=== PATIENT | female | born 1995 | race Caucasian/White ===

== ENCOUNTER 2017-12-16 15:38 | Emergency (ER) | payer OTHER ==
[2017-12-16 16:11] VITALS: BP 123/89
[2017-12-16] MEDS ORDERED: Lidocaine 1% MPF* 2 ML VIAL INJ ONE (16:47)
--- NOTE | 2017-12-16 16:55 | UC ---
Laceration HPI <Charli Pires - Last Filed: 12/16/17 17:03> - HPI Summary HPI Summary: 22 y/o female presents to the urgent care c/o cutting her second Rt finger while washing the dishes about 1 hrs ago, bleeding is constant every time she moves her finger. Pain is 5/10 w/ touch, she can move her finger w/o any difficulty. Pt is UTD w/ tetanus shot. Pt denies fever, numbness and tingling sensation over the finger or hand, SOB, chest pain, abdominal pain, N/V/D - History Of Current Complaint Hx Obtained From: Patient Laceration Location: Finger - Base of RT second finger laceration Mechanism Of Injury: Sharp Trauma Onset/Duration: Lasting Hours - 1, Still Present Severity: Mild Pain Intensity: 4 Pain Scale Used: 0-10 Numeric Aggravating Factors: Movement Related History: Dominant Hand Right <Anuja Yusuf - Last Filed: 12/17/17 09:04> - History Of Current Complaint Chief Complaint: UCLaceration Stated Complaint: RIGHT INDEX FINGER LAC Time Seen by Provider: 12/16/17 16:33 - Allergies/Home Medications Allergies/Adverse Reactions: Allergies Allergy/AdvReac Type Severity Reaction Status Date / Time No Known Allergies Allergy Verified 12/16/17 16:11 Home Medications: Home Medications Control Pill 1 tab PO DAILY 12/16/17 [History Confirmed 12/16/17] PMH/Surg Hx/FS Hx/Imm Hx Previously Healthy: Yes - Pt denies PMHX - Surgical History Surgical History: Yes Surgery Procedure, Year, and Place: T&A - Family History Known Family History: Positive: Diabetes Family History: Hypothyrodism - Social History Occupation: Employed Full-time Lives: With Family Alcohol Use: Rare Substance Use Type: None Smoking Status (MU): Never Smoked Tobacco <Anuja Yusuf - Last Filed: 12/17/17 09:04> Review of Systems Constitutional: Negative Skin: Other - RT finger laceration w/ a glass Eyes: Negative ENT: Negative Respiratory: Negative Cardiovascular: Negative Gastrointestinal: Negative Genitourinary: Negative Motor: Negative Neurovascular: Negative Musculoskeletal: Other: - RT finger pain s/p laceration Neurological: Negative Psychological: Negative Is Patient Immunocompromised?: No All Other Systems Reviewed And Are Negative: Yes <Anuja Yusuf - Last Filed: 12/17/17 09:04> Physical Exam Vital Signs: Initial Vital Signs Temp 98.4 F 12/16/17 16:08 Pulse 92 12/16/17 16:08 Resp 14 12/16/17 16:08 BP 123/89 12/16/17 16:08 Pulse Ox 100 12/16/17 16:08 <Charli Pires - Last Filed: 12/16/17 17:03> - Summary Physical Exam Summary: Vital Signs Reviewed: Yes General: well developed, well nourished female sitting in the examining table w/ o any apparent distress Eye Exam: Normal Eyes: Positive: Conjunctiva Clear - PERRLA, EOMI, fundi grossly normal ENT: Positive: Normal ENT inspection, Hearing grossly normal, Pharynx normal, TMs normal Neck: Positive: Supple, Nontender, No Lymphadenopathy Respiratory: Positive: Chest non-tender, Lungs clear, Normal breath sounds, No respiratory distress Cardiovascular: Positive: RRR, No Murmur, Pulses Normal, Brisk Capillary Refill Abdomen Description: Positive: Nontender, No Organomegaly, Soft. Negative: CVA Tenderness (R), CVA Tenderness (L) Bowel Sounds: Positive: Present Musculoskeletal: Positive: Strength Intact, ROM Intact, No Edema Neurological: Positive: Alert, Muscle Tone Normal Psychological Exam: Normal Skin: Positive:Lateral side of RT second MCPJ a superficial laceration about 1.0cm in size and semilunar in shape, bleeding, no foreign body observed. mild tenderness to palpation, FROM of RT hand and all fingers , sensation intact, capillary refill brisk, and pulses WNL. Triage Information Reviewed: Yes Vital Signs: Initial Vital Signs Temp 98.4 F 12/16/17 16:08 Pulse 92 12/16/17 16:08 Resp 14 12/16/17 16:08 BP 123/89 12/16/17 16:08 Pulse Ox 100 12/16/17 16:08 <Anuja Yusuf - Last Filed: 12/17/17 09:04> Laceration Repair - Laceration Repair 1 Description: Irregular - semilunar in shape in the RT second MCPJ Laceration Size After Repair: Length (cm) - 1.0cm Modified For Repair: No Type Injection: Local Anesthesia Used: 1.0% Lido - 2ml Cleansing Completed Via Routine Prep: Yes Irrigation With Pressure Irrigation Device: Yes Closure Material: Sutures - 5 sutures Closure Method: Single Layer Suture Of: Skin, SQ Suture Type: Nylon <Anuja Yusuf - Last Filed: 12/17/17 09:04> Laceration Course/Dx - Course/Dx Course Of Treatment: 22 y/o female presents to the urgent care c/o cutting her second Rt finger while washing the dishes about 1 hrs ago, bleeding is constant every time she moves her finger. Pain is 5/10 w/ touch, she can move her finger w/o any difficulty. Pt is UTD w/ tetanus shot. Pt denies fever, numbness and tingling sensation over the finger or hand, SOB, chest pain, abdominal pain, N/V /D. Hx obtained. Pt w/Lateral side of RT second MCPJ w/ a superficial laceration about 1.0cm in size and semilunar in shape, bleeding, no foreign body observed. mild tenderness to palpation on examination, RT finger X-ray ordered to r/o foreign body, Impresion: no fractured or FB observed. LACERATION PROCEDURE NOTE: . Copious irrigation was done with saline by the nurse and the wound explored. There was no FB or deep structure injury noted. FROM of RT hand procedure was explained and consent obtained, Timeout performed. The wound was anesthetized with 2 mL of 1% lido with good anesthesia. Sterile drape and prep were done. There were 5 sutures with 5.0 nylon type of suture. The length of the wound after closure was 1.0cm. No debridement done. Wound was covered bacitracin with sterile non adherent dressing. The Pt tolerated the procedure well without adverse effects. Neurovascular intact and FROM. Pt advised to f/u suture removal in 10-14 days and if any signs of infection develop to immediately return to the urgent care of PCP for further management and treatment. Pt understood and agreed and left the clinic ambulating A&Ox3. - Differential Dx - Laceration/Wound Differental Diagnoses: Abrasion, Dehiscence, Fracture, Puncture Wound, Tendon Laceration Provider Diagnoses: 1- RT second phalanx laceration repair <Anuja Yusuf - Last Filed: 12/17/17 09:04> Discharge <Charli Pires - Last Filed: 12/16/17 17:03> - Sign-Out/Discharge Documenting (check all that apply): Discharge/Admit/Transfer - D/C home - Billing Disposition and Condition Condition: STABLE Disposition: HOME <Anuja Yusuf - Last Filed: 12/17/17 09:04> - Discharge Plan Condition: Stable Disposition: HOME Prescriptions: Bacitracin OINTMENT* 1 applic TOPICAL BID #1 tube Patient Education Materials: Care For Your Stitches (ED), Laceration (ED) Referrals: [facility] [Outside] - If Needed Additional Instructions: 1-Please apply topical antibiotic over the wound. Keep wound clean and dry 2- F/u suture removal in 10-14 days days w/ your PCP or here at the urgent care. 3-Take Ibuprofen or Tylenol PO q6-8hrs prn for pain or swelling. 4- If you develop fever or redness around your finger despite the antibiotic please go to the ER immediately or return to the Urgent care.
--- NOTE | 2017-12-16 17:30 | RAD ---
HISTORY: Right hand injury, evaluate for broken glass COMPARISONS: None VIEWS: 2, Frontal and lateral views of the right hand FINDINGS: BONE DENSITY: Normal. BONES: There is no displaced fracture. JOINTS: There is no arthropathy. ALIGNMENT: There is no dislocation. SOFT TISSUES: Unremarkable. OTHER FINDINGS: There is no radiopaque foreign body. IMPRESSION: NO ACUTE OSSEOUS INJURY. IF SYMPTOMS PERSIST, RECOMMEND REPEAT IMAGING.
== END 2017-12-16 17:51 | disposition home or self-care (01) ==
LOC: UCCORT 15:38
DX: S61.210A Laceration without foreign body of right index finger without damage to nail, initial encounter (principal); W26.9XXA Contact with unspecified sharp object(s), initial encounter; Y93.G1 Activity, food preparation and clean up; Y92.9 Unspecified place or not applicable
CPT/HCPCS: 12001; 99202; G0463